=== PATIENT | female | born 1985 | race Caucasian/White ===

== ENCOUNTER → 2018-05-23 | Outpatient (REF) | payer OTHER ==
[~2018-05-23] MED LIST: OSEL75CA PO
[2018-05-23 17:12] LABS: INFLUENZA A AMPLIFICATION NEGATIVE (NEGATIVE); INFLUENZA B AMPLIFICATION NEGATIVE (NEGATIVE)
== END ==
LOC: M LAB REF 16:31
PROVIDERS: ATTEND Physician Assistant
DX: R68.89 Other general symptoms and signs (principal)

== ENCOUNTER → 2018-06-14 | Outpatient (REF) | payer OTHER ==
[2018-06-14 19:48] LABS: BASO % 0.5 % (0.0-1.0); EOS # 0.2 10^3/uL (0.0-0.50); EOS % 2.2 % (0.0-3.0); HEMATOCRIT 36.2 % (36.0-47.0); HEMOGLOBIN 11.6 g/dl (12.0-15.5); LYMPH # 2.8 10^3/uL (1.5-4.5); LYMPH % 32.2 % (24.0-44.0); MEAN CORPUSCULAR VOLUME 81.2 fl (80.0-96.0); MONO # 0.5 10^3/uL (0.0-0.8); MONO % 5.7 % (0.0-5.0); NEUTROPHILS # 5.1 10^3/uL (1.8-7.7); NEUTROPHILS % 59.2 % (36.0-66.0); PLATELET COUNT, AUTOMATED 255 10^3/uL (150-450); RED BLOOD COUNT 4.46 10^6/uL (4.00-5.40); WHITE BLOOD COUNT 8.6 10^3/uL (4.0-10.0)
[2018-06-14 19:58] LABS: ALT/SGPT 24 U/L (12-78); BILIRUBIN,TOTAL 0.4 MG/DL (0.2-1.0); BLOOD UREA NITROGEN 9 MG/DL (7-18); CALCIUM LEVEL 8.7 MG/DL (8.5-10.1); CARBON DIOXIDE LEVEL 25 MEQ/L (21-32); CHLORIDE LEVEL 110 MEQ/L (98-107); CREATININE FOR GFR 0.75 MG/DL (0.55-1.30); GLOMERULAR FILTRATION RATE > 60.0 (>60); GLUCOSE, FASTING 91 MG/DL (70-100); POTASSIUM SERUM 4.4 MEQ/L (3.5-5.1); SODIUM LEVEL 141 MEQ/L (136-145); TOTAL PROTEIN 7.8 GM/DL (6.4-8.2)
[2018-06-14 20:01] LABS: INR 1.03; PROTHROMBIN TIME 13.6 SECONDS (12.1-14.4)
[2018-06-14 20:02] LABS: PARTIAL THROMBOPLASTIN TIME 21.7 SECONDS (25.4-37.6)
[2018-06-19 08:06] LABS: PROTEIN C FUNCTIONAL ACTIVITY 121 % (73-180); PROTEIN S FUNCTIONAL ACTIVITY 87 % (63-140)
== END ==
LOC: M LAB REF 18:34
PROVIDERS: ATTEND Family Medicine Addiction Medicine
DX: I82.492 Acute embolism and thrombosis of other specified deep vein of left lower extremity (principal)

== ENCOUNTER 2018-08-04 19:08 | Emergency (ER) | payer OTHER ==
[~2018-08-04] VITALS: Ht 162.6 cm; Wt 124.5 kg
[~2018-08-04 19:08] MED LIST changes: +OMEP40CA2 PO
[2018-08-04] MEDS ORDERED: FUROSEMIDE 40 MG/4 ML VIAL (J1940) IV ONE (19:45)
[2018-08-04 20:10] LABS: BASO % 0.4 % (0.0-1.0); EOS # 0.2 10^3/uL (0.0-0.50); EOS % 2.3 % (0.0-3.0); HEMATOCRIT 30.9 % (36.0-47.0); HEMOGLOBIN 9.9 g/dl (12.0-15.5); LYMPH # 2.9 10^3/uL (1.5-4.5); LYMPH % 35.9 % (24.0-44.0); MEAN CORPUSCULAR VOLUME 81.1 fl (80.0-96.0); MONO # 0.4 10^3/uL (0.0-0.8); MONO % 4.7 % (0.0-5.0); NEUTROPHILS # 4.5 10^3/uL (1.8-7.7); NEUTROPHILS % 56.3 % (36.0-66.0); PLATELET COUNT, AUTOMATED 230 10^3/uL (150-450); RED BLOOD COUNT 3.81 10^6/uL (4.00-5.40); WHITE BLOOD COUNT 7.9 10^3/uL (4.0-10.0)
[2018-08-04 20:24] LABS: HCG, SERUM QUALITATIVE NEGATIVE (NEGATIVE)
[2018-08-04 20:34] LABS: BLOOD UREA NITROGEN 12 MG/DL (7-18); GLUCOSE, FASTING 110 MG/DL (70-100)
[2018-08-04 20:35] LABS: ALBUMIN 3.5 GM/DL (3.2-5.2); ALT/SGPT 29 U/L (12-78); BILIRUBIN,DIRECT < 0.1 MG/DL (0.0-0.2); BILIRUBIN,TOTAL 0.1 MG/DL (0.2-1.0); CALCIUM LEVEL 8.1 MG/DL (8.5-10.1); CARBON DIOXIDE LEVEL 25 MEQ/L (21-32); CHLORIDE LEVEL 109 MEQ/L (98-107); CPK CREATINE PHOSPHOKINASE 136 U/L (26-192); CREATININE FOR GFR 0.61 MG/DL (0.55-1.30); GLOMERULAR FILTRATION RATE > 60.0 (>60); MB/CK RELATIVE INDEX 0.73 (< OR =4); NT-PRO BNP 671 PG/ML (<125); POTASSIUM SERUM 4.1 MEQ/L (3.5-5.1); SODIUM LEVEL 142 MEQ/L (136-145); TOTAL PROTEIN 6.9 GM/DL (6.4-8.2); TROPONIN I < 0.02 NG/ML (< 0.10)
[2018-08-04 20:40] LABS: INR 0.93; PROTHROMBIN TIME 12.6 SECONDS (12.1-14.4)
--- NOTE | 2018-08-04 21:42 | REPVR ---
EXAM: US Duplex Bilateral Lower Extremity Veins EXAM DATE/TIME: 08/04/2018 9:02 PM CLINICAL HISTORY: 32 years old, female; Signs and symptoms; Edema, localized; Lower extremity, bilateral TECHNIQUE: Imaging protocol: Real-time duplex ultrasound of the Bilateral Lower Extremities with 2-D bender scale, color Doppler flow and spectral waveform analysis. Complete exam focused on the bilateral lower extremity veins. COMPARISON: No relevant prior studies available. FINDINGS: Right deep veins: Unremarkable. The common femoral, femoral and popliteal veins are patent without thrombus. Normal Doppler waveforms. Normal compressibility and/or augmentation response. Right superficial veins: Saphenofemoral junction is patent without thrombus. Left deep veins: Unremarkable. The common femoral, femoral and popliteal veins are patent without thrombus. Normal Doppler waveforms. Normal compressibility and/or augmentation response. Left superficial veins: Saphenofemoral junction is patent without thrombus. Soft tissues: Unremarkable. IMPRESSION: No sonographic evidence of deep vein thrombosis. Electronically signed by: Norm Sanchez On 08/04/2018 21:42:08 PM
[2018-08-04] MEDS ORDERED: LISI10TA4 PO (22:15)
[2018-08-04] MEDS ORDERED: HYDR12.55 PO (22:15)
[2018-08-04 22:24] VITALS: BP 138/88
--- NOTE | 2018-08-05 09:44 | REP ---
Cough and dyspnea. FINDINGS: The superior mediastinal structures are midline. The cardiac silhouette is unremarkable in size, shape, and position. The diaphragmatic surfaces of the lungs are regular, and the costophrenic angles are clear. The pulmonary miller are clear. The imaged osseous structures are intact. IMPRESSION: There is no acute cardiopulmonary disease. Electronically Signed by Roberth Coronel DO 08/05/2018 01:45 P
--- NOTE | 2018-08-05 20:53 | ECGEPIP ---
Stationary ECG Study [facility] - ED Test Date: 2018-08-04 Pat Name: MEGHAN ALARCON Department: Room: - Gender: F Lube Technician: gt : 1985 Requested By: FIORELLA Grace Order Number: [id number] Reading MD: Rosalba Carey Measurements Intervals [place] Rate: 81 P: 56 OR: 156 QRS: 35 QRSD: 97 T: 45 QT: 351 QTc: 409 Interpretive Statements SINUS RHYTHM SIMILAR 04/04/13 Electronically Signed On 08-05-2018 20:52:44 EDT by Rosalba Carey
== END 2018-08-04 22:47 | disposition home or self-care (01) ==
LOC: M ED 19:08
DX: I10 Essential (primary) hypertension (principal); E87.70 Fluid overload, unspecified; Z88.1 Allergy status to other antibiotic agents; Z88.0 Allergy status to penicillin; Z91.02 Food additives allergy status
CPT/HCPCS: 71046; 80048; 80076; 82550; 82553; 83880; 84703; 85025; 85610; 93005; 93041; 93970; 94760; 96374; 99284; J1940

== ENCOUNTER → 2018-10-01 | Outpatient (REF) | payer OTHER, MEDICAID ==
[~2018-10-01] MED LIST changes: +HYDR12.55 PO; +LISI10TA4 PO
[2018-10-01 17:48] LABS: BASO % 0.5 % (0.0-1.0); EOS # 0.2 10^3/uL (0.0-0.50); EOS % 2.9 % (0.0-3.0); HEMATOCRIT 35.6 % (36.0-47.0); HEMOGLOBIN 11.2 g/dl (12.0-15.5); LYMPH # 2.2 10^3/uL (1.5-4.5); LYMPH % 34.3 % (24.0-44.0); MEAN CORPUSCULAR HEMOGLOBIN 25.5 pg (27.0-33.0); MEAN CORPUSCULAR HGB CONC 31.5 g/dl (32.0-36.5); MEAN CORPUSCULAR VOLUME 81.1 fl (80.0-96.0); MONO # 0.4 10^3/uL (0.0-0.8); MONO % 5.9 % (0.0-5.0); NEUTROPHILS # 3.5 10^3/uL (1.8-7.7); NEUTROPHILS % 56.2 % (36.0-66.0); PLATELET COUNT, AUTOMATED 251 10^3/uL (150-450); RED BLOOD COUNT 4.39 10^6/uL (4.00-5.40); WHITE BLOOD COUNT 6.3 10^3/uL (4.0-10.0)
[2018-10-01 17:51] LABS: ALT/SGPT 25 U/L (12-78); BILIRUBIN,TOTAL 0.4 MG/DL (0.2-1.0); BLOOD UREA NITROGEN 11 MG/DL (7-18); CALCIUM LEVEL 8.7 MG/DL (8.5-10.1); CARBON DIOXIDE LEVEL 26 MEQ/L (21-32); CHLORIDE LEVEL 109 MEQ/L (98-107); CHOLESTEROL LEVEL 155 MG/DL (<200); CREATININE FOR GFR 0.77 MG/DL (0.55-1.30); GLOMERULAR FILTRATION RATE > 60.0 (>60); GLUCOSE, FASTING 99 MG/DL (70-100); POTASSIUM SERUM 3.6 MEQ/L (3.5-5.1); SODIUM LEVEL 140 MEQ/L (136-145); TRIGLYCERIDES LEVEL 135 MG/DL (<150)
[2018-10-01 17:52] LABS: ALBUMIN 3.8 GM/DL (3.2-5.2); CHOLESTEROL RISK RATIO 4.078 (<5); HDL CHOLESTEROL 38 MG/DL (>40); LDL CHOLESTEROL 90 MG/DL (<100); NON-HDL-C 117 MG/DL; TOTAL PROTEIN 7.7 GM/DL (6.4-8.2)
[2018-10-01 17:53] LABS: TOTAL 25(OH) VITAMIN D 15.2 NG/ML (30.0-100.0)
[2018-10-01 19:02] LABS: HEMOGLOBIN A1c 5.4 %
[2018-10-04 00:07] LABS: Lyme Disease IgG/IgM Antibodie <0.91 ISR (0.00-0.90); Lyme Disease IgM Ab Quantitati <0.80 index (0.00-0.79)
== END ==
LOC: M LAB REF 16:48
PROVIDERS: ATTEND Family Medicine
DX: Z13.228 Encounter for screening for other metabolic disorders (principal)

== ENCOUNTER → 2019-04-05 | Outpatient (REF) | payer OTHER ==
[~2019-04-05] MED LIST changes: -OMEP40CA2 PO; +OMEP40CA97 PO
[2019-04-05 18:20] LABS: APPEARANCE, URINE HAZY (CLEAR); BACTERIA, URINE AUTO 3+ (NEGATIVE); BILIRUBIN, URINE AUTO NEGATIVE (NEGATIVE); BLOOD, URINE BLOOD 3+ (NEGATIVE); COLOR, URINE YELLOW (YELLOW); GLUCOSE, URINE (UA) AUTO NEGATIVE (NEGATIVE); KETONE, URINE AUTO NEGATIVE (NEGATIVE); LEUKOCYTE ESTERASE, URINE AUTO 2+ (NEGATIVE); NITRITE, URINE AUTO POSITIVE (NEGATIVE); PROTEIN, URINE AUTO 2+ mg/dL (NEGATIVE); RBC, URINE AUTO 121 /HPF (0-3); SPECIFIC GRAVITY URINE AUTO 1.023 (1.002-1.035); SQUAMOUS EPITHELIAL CELL UR AU 1 /HPF (0-6); UROBILINOGEN, URINE AUTO 0.2 mg/dL (0.0-2.0); WBC, URINE AUTO 149 /HPF (0-3)
== END ==
LOC: M LAB REF 16:48
PROVIDERS: ATTEND Physician Assistant Medical
DX: N39.0 Urinary tract infection, site not specified (principal)

== ENCOUNTER → 2019-05-09 | Outpatient (REF) | payer OTHER | LOC: M LAB REF 17:11 | PROVIDERS: ATTEND Physician Assistant | DX: D22.4 Melanocytic nevi of scalp and neck (principal) ==

== ENCOUNTER → 2019-06-12 | Outpatient (REF) | payer OTHER, MEDICAID ==
[2019-06-12 19:31] LABS: BASO % 0.5 % (0.0-1.0); EOS # 0.2 10^3/uL (0.0-0.5); EOS % 2.6 % (0.0-3.0); HEMATOCRIT 35.6 % (36.0-47.0); HEMOGLOBIN 11.3 g/dl (12.0-15.5); LYMPH # 2.4 10^3/uL (1.5-5.0); LYMPH % 28.4 % (24.0-44.0); MEAN CORPUSCULAR HEMOGLOBIN 25.9 pg (27.0-33.0); MEAN CORPUSCULAR HGB CONC 31.7 g/dl (32.0-36.5); MEAN CORPUSCULAR VOLUME 81.7 fl (80.0-96.0); MONO # 0.5 10^3/uL (0.0-0.8); MONO % 5.6 % (0.0-5.0); NEUTROPHILS # 5.4 10^3/uL (1.5-8.5); NEUTROPHILS % 62.7 % (36.0-66.0); PLATELET COUNT, AUTOMATED 229 10^3/uL (150-450); RED BLOOD COUNT 4.36 10^6/uL (4.00-5.40); WHITE BLOOD COUNT 8.6 10^3/uL (4.0-10.0)
[2019-06-12 19:44] LABS: ALBUMIN 3.7 GM/DL (3.2-5.2); ALT/SGPT 20 U/L (12-78); BILIRUBIN,TOTAL 0.3 MG/DL (0.2-1.0); BLOOD UREA NITROGEN 11 MG/DL (7-18); CARBON DIOXIDE LEVEL 26 MEQ/L (21-32); CHLORIDE LEVEL 106 MEQ/L (98-107); CREATININE FOR GFR 0.63 MG/DL (0.55-1.30); FERRITIN 8 NG/ML (8-252); FREE T4 1.28 NG/DL (0.76-1.46); GLOMERULAR FILTRATION RATE > 60.0 (>60); GLUCOSE, FASTING 130 MG/DL (70-100); IRON (FE) 66 UG/DL (50-170); POTASSIUM SERUM 3.9 MEQ/L (3.5-5.1); SODIUM LEVEL 137 MEQ/L (136-145); TOTAL PROTEIN 7.5 GM/DL (6.4-8.2)
[2019-06-12 19:45] LABS: VITAMIN B12 LEVEL 836 PG/ML
[2019-06-12 19:46] LABS: FOLATE 7.7 NG/ML
== END ==
LOC: M LAB REF 18:38
PROVIDERS: ATTEND Physician Assistant
DX: N92.0 Excessive and frequent menstruation with regular cycle (principal); D64.9 Anemia, unspecified; E55.9 Vitamin D deficiency, unspecified; F41.9 Anxiety disorder, unspecified; Z98.84 Bariatric surgery status; E66.01 Morbid (severe) obesity due to excess calories

== ENCOUNTER → 2019-08-21 | Outpatient (REF) | payer OTHER, MEDICAID ==
[~2019-08-21] MED LIST changes: +ALBU83IN INH; +DICY20TA11 PO; +NITR-67 PO; +PHEN-593 PO; +SERT-141 PO; +VITAD1000T PO
[2019-08-21 20:11] LABS: CHLAMYDIA DNA AMPLIFICATION NEGATIVE (NEGATIVE); GC DNA AMPLIFICATION NEGATIVE (NEGATIVE)
== END ==
LOC: M LAB REF 16:39
PROVIDERS: ATTEND Physician Assistant
DX: N30.01 Acute cystitis with hematuria (principal); R30.0 Dysuria

== ENCOUNTER → 2019-08-26 | Outpatient (CLI) | payer OTHER, MEDICAID | LOC: M LABSMTC 12:40 | PROVIDERS: ATTEND Anesthesiology | DX: Z01.812 Encounter for preprocedural laboratory examination (principal); Z11.59 Encounter for screening for other viral diseases | CPT/HCPCS: C8903; U0002 ==

== ENCOUNTER 2019-08-28 08:07 | Day surgery (SDC) | payer OTHER ==
[~2019-08-28] VITALS: Ht 162.6 cm; Wt 127.0 kg
[~2019-08-28 08:07] MED LIST changes: +LIDOCAINE 1% MDV 20ML VIAL SQ PRN; +LR 1,000 ML IV ONE
[2019-08-28] MEDS ORDERED: BUPIVACAINE/EPIN 0.25% 30 ML VIAL As Ordered ONE (08:27)
[2019-08-28] MEDS ORDERED: propofoL 200 MG/20 ML VIAL As Ordered ONE (08:29)
[2019-08-28] MEDS ORDERED: fentaNYL 100 MCG/2 ML INJECTION (J3010) As Ordered ONE ×4 (08:29→10:18)
[2019-08-28] MEDS ORDERED: MIDAZOLAM INJ 2MG/2ML VIAL (J2250 PER 1MG) As Ordered ONE (08:29)
[2019-08-28] MEDS ORDERED: ONDANSETRON 4MG/2ML VIAL As Ordered ONE (08:29)
[2019-08-28] MEDS ORDERED: LIDOCAINE 2% 100MG/5ML SDV (FOR ANES.) As Ordered ONE (08:29)
[2019-08-28] MEDS ORDERED: dexameTHASONE 4 MG/ML 1ML VIAL (J1100 PER 1MG) As Ordered ONE (08:29)
[2019-08-28] MEDS ORDERED: ACETAMINOPHEN 1000MG 100ML IV BTL (OFIRMEV) (J0131 PER 10MG) As Ordered ONE (09:15)
[2019-08-28] MEDS ORDERED: oxyCODONE 5MG TAB As Ordered ONE (10:18)
[2019-08-28] MEDS: fentaNYL 100 MCG/2 ML INJECTION (J3010) IV PRN ×2 (10:20→10:25)
[2019-08-28] MEDS ORDERED: oxyCODONE 5MG TAB PO PRN (10:30)
[2019-08-28] MEDS ORDERED: LR 1,000 ML IV SCH (10:30)
[2019-08-28] MEDS ORDERED: ONDANSETRON 4MG/2ML VIAL IV PRN (10:30)
--- NOTE | 2019-08-28 11:34 | RO ---
DATE OF SERVICE: 08/28/2019 PREOPERATIVE DIAGNOSES: Left carpal and cubital tunnel syndrome. POSTOPERATIVE DIAGNOSES: Left carpal and cubital tunnel syndrome. PROCEDURE: Left cubital tunnel release and endoscopic carpal tunnel release. Cubital tunnel had anterior transposition. SURGEON: Dr. Felipe Thomas MAGNETIC RESONANCE IMAGING DIRECTOR: ANESTHESIA: General. INDICATIONS: A 33-year-old female that failed nonoperative modes of treatment. We discussed the risks and benefits of surgical release, including but not limited to, infection, damage to surrounding structures, incomplete relief. Patient wished to proceed. PREOPERATIVE ANTIBIOTICS: None. BLOOD LOSS: Minimal. TOURNIQUET TIME: 27 minutes. COMPLICATIONS: None. OPERATIVE DESCRIPTION: Patient was brought back to the operating room (OR) in the supine position and underwent general anesthesia. The left arm was prepped and draped in the usual fashion. We then had time-out confirming side, site, and surgery. Once all in agreement, we injected 20 mL of 0.25% Marcaine with epinephrine surrounding the incision, elevated the tourniquet up to 250 mmHg, made a transverse incision over the palmaris longus, retracted it radially, down to antebrachial fascia, sharply dissected it, used the two-prong skin hook to elevate. We then inserted the dilator and then the synovial stripper and endoscopic camera. Once the median nerve was visualized and out of view, we transected the transverse carpal ligament from distal to proximal. Once adequately reduced, we irrigated and closed with #3-0 Vicryl, #3-0 Prolene, Mastisol, Steris, gauze, and Tegaderm. Then, transferred up to the elbow and made a longitudinal incision between the medial condyle and the olecranon. Sharply dissected through the subcutaneous tissue, monitoring for the medial antebrachial cutaneous nerve, which we identified distal from the incision. This was preserved and retracted out of the way. We then identified the ulnar nerve at the proximal extent of the incision, released it off the intermuscular septum and distally through Ruiz ligament through the superficial and deep fascia of the flexor carpi ulnaris (FCU), at which point, we did a thorough neurolysis and transposed it anteriorly over the medial epicondyle. At this point, we closed the Ruiz ligament posteriorly with #3-0 Prolene and created an adequate fascial sling that was closed down with #3-0 Vicryl. Ranged the elbow. There were no additional sites of compression. We irrigated the wound thoroughly, closed the subcutaneous tissues with #3-0 Vicryl, skin with #3-0 Monocryl, Mastisol, Steris, gauze, Tegaderm, Kerlix, and Be. Tourniquet was let down. Patient was taken to post anesthesia care unit (PACU) in stable condition. POSTOPERATIVE PLAN: Patient will work on pain control, range of motion. We will see her 2 weeks postoperative to look at the incisions.
[2019-08-28 12:52] VITALS: BP 135/90
== END 2019-08-28 12:53 | disposition home or self-care (01) ==
LOC: M SDC 08:07
PROVIDERS: ATTEND Orthopaedic Surgery Hand Surgery
DX: G56.02 Carpal tunnel syndrome, left upper limb (principal); G56.22 Lesion of ulnar nerve, left upper limb; I73.9 Peripheral vascular disease, unspecified; D64.9 Anemia, unspecified; J45.909 Unspecified asthma, uncomplicated; E66.01 Morbid (severe) obesity due to excess calories; Z79.899 Other long term (current) drug therapy; Z86.718 Personal history of other venous thrombosis and embolism; Z87.891 Personal history of nicotine dependence; Z98.84 Bariatric surgery status; F41.9 Anxiety disorder, unspecified; F32.9 Major depressive disorder, single episode, unspecified
CPT/HCPCS: 29848; 64718; 81025; J0131; J1100; J2250; J2405; J3010

== ENCOUNTER → 2019-09-24 | Outpatient (CLI) | payer OTHER ==
[~2019-09-24] MED LIST changes: -LIDOCAINE 1% MDV 20ML VIAL SQ PRN; -LR 1,000 ML IV ONE
[2019-09-24 17:42] LABS: BLOOD UREA NITROGEN 8 MG/DL (7-18); CALCIUM LEVEL 8.7 MG/DL (8.5-10.1); CARBON DIOXIDE LEVEL 24 MEQ/L (21-32); CHLORIDE LEVEL 110 MEQ/L (98-107); CREATININE FOR GFR 0.67 MG/DL (0.55-1.30); GLOMERULAR FILTRATION RATE > 60.0 (>60); GLUCOSE, FASTING 79 MG/DL (70-100); NT-PRO BNP 28 PG/ML (<125); POTASSIUM SERUM 4.1 MEQ/L (3.5-5.1); SODIUM LEVEL 141 MEQ/L (136-145)
== END ==
LOC: M WUC 12:20
PROVIDERS: ATTEND Internal Medicine Cardiovascular Disease
DX: R06.02 Shortness of breath (principal); R03.0 Elevated blood-pressure reading, without diagnosis of hypertension

== ENCOUNTER → 2019-09-24 | Outpatient (CLI) | payer OTHER ==
[2019-09-24 17:24] LABS: HCG, SERUM QUALITATIVE NEGATIVE (NEGATIVE)
== END ==
LOC: M WUC 12:23
PROVIDERS: ATTEND Physician Assistant
DX: N91.2 Amenorrhea, unspecified (principal)

== ENCOUNTER → 2019-10-16 | Outpatient (REF) | payer OTHER, MEDICAID | LOC: M LAB REF 16:12 | PROVIDERS: ATTEND Physician Assistant | DX: E55.9 Vitamin D deficiency, unspecified (principal) ==

== ENCOUNTER → 2019-12-27 | Outpatient (CLI) | payer OTHER, MEDICAID ==
[~2019-12-27] MED LIST changes: +D31000TA2 PO; -VITAD1000T PO
[2019-12-27 21:21] LABS: FOLLICLE STIMULATING HORMONE 3.1 mIU/mL; FREE T4 0.95 NG/DL (0.76-1.46); LUTEINIZING HORMONE 2.8 mIU/mL; PROGESTERONE 4.33 NG/ML; PROLACTIN 7.4 NG/ML; THYROID STIMULATING HORMONE 1.71 uIU/ML (0.358-3.740)
== END ==
LOC: M WUC 17:27
PROVIDERS: ATTEND Specialist
DX: N92.6 Irregular menstruation, unspecified (principal)

== ENCOUNTER → 2020-01-16 | Outpatient (CLI) | payer OTHER, MEDICAID | LOC: M LABSMTC 12:47 | PROVIDERS: ATTEND Anesthesiology | DX: Z01.812 Encounter for preprocedural laboratory examination (principal); Z20.828 Contact with and (suspected) exposure to other viral communicable diseases | CPT/HCPCS: C9803; U0003 ==

== ENCOUNTER 2020-01-20 10:45 | Day surgery (SDC) | payer OTHER ==
[~2020-01-20] VITALS: Ht 162.6 cm; Wt 127.5 kg
[2020-01-20] MEDS ORDERED: LR 1,000 ML IV ONE (11:15)
[2020-01-20] MEDS ORDERED: fentaNYL 100 MCG/2 ML INJECTION (J3010) As Ordered ONE ×3 (13:05→14:35)
[2020-01-20] MEDS ORDERED: LIDOCAINE 2% INJ 100 MG/5 ML SYRINGE As Ordered ONE (13:05)
[2020-01-20] MEDS ORDERED: propofoL 200 MG/20 ML VIAL As Ordered ONE ×2 (13:05→13:07)
[2020-01-20] MEDS ORDERED: MIDAZOLAM INJ 2MG/2ML VIAL (J2250 PER 1MG) As Ordered ONE (13:05)
[2020-01-20] MEDS ORDERED: ONDANSETRON 4MG/2ML VIAL As Ordered ONE ×2 (13:05→14:39)
[2020-01-20] MEDS ORDERED: BUPIVACAINE/EPIN 0.25% 30 ML VIAL As Ordered ONE (13:10)
[2020-01-20] MEDS ORDERED: KETOROLAC 30 MG/ML 1ML VIAL As Ordered ONE (14:35)
[2020-01-20] MEDS: fentaNYL 100 MCG/2 ML INJECTION (J3010) IV PRN ×4 (14:36→14:52)
[2020-01-20] MEDS ORDERED: LR 1,000 ML IV SCH ×2 (15:00)
[2020-01-20] MEDS ORDERED: ONDANSETRON 4MG/2ML VIAL IV PRN ×2 (15:00)
[2020-01-20] MEDS ORDERED: oxyCODONE 5MG TAB PO PRN (15:00)
[2020-01-20] MEDS ORDERED: MORPHINE 4 MG/ML 1ML VIAL/SYRINGE (J2270) IV PRN (15:15)
[2020-01-20] MEDS ORDERED: PERCOCET 5MG/325MG TAB PO PRN ×2 (15:15)
[2020-01-20] MEDS ORDERED: KETOROLAC 30 MG/ML 1ML VIAL IV ONE (16:00)
[2020-01-20 16:50] VITALS: BP 141/87
--- NOTE | 2020-01-22 16:13 | RO ---
DATE OF OPERATION: 01/20/2020 PREOPERATIVE DIAGNOSES: 1. Right ulnar neuropathy. 2. Right median neuropathy. POSTOPERATIVE DIAGNOSES: 1. Right ulnar neuropathy. 2. Right median neuropathy. PROCEDURE PERFORMED: 1. Right ulnar nerve decompression at the elbow. 2. Right open carpal tunnel release. SURGEON: Shola Polk MD IT COMPLIANCE ANALYST: ANESTHESIA: General. ESTIMATED BLOOD LOSS: Less than 40 mL replaced with crystalloid. COMPLICATIONS: None. TOURNIQUET: No tourniquet required. INDICATIONS: Paresthesias, right upper extremity. Electrodiagnostic studies suggesting compression with peripheral neuropathy. The patient has elected for operative intervention. Consent reviewed in detail including a moe discussion of the pathology involved, the procedure proposed, alternatives including doing nothing, and risks including, but not limited to, pain, failure, incomplete relief, need for more surgery, nerve injury, and other issues. The patient agreed to proceed. OPERATIVE COURSE: Identified in the holding area, site and side verified, brought to the operating room. General endotracheal anesthesia was administered. She was positioned for exposure of the right upper extremity. Next, a tourniquet was placed high on the right upper extremity in case it was needed, but it was not inflated prior to prepping and draping. Once she was prepped and draped, time-out was accomplished. The incisions were outlined with the marking pen over the medial epicondyle and over the carpal tunnel. The incisions were infiltrated with 0.25% Marcaine with epinephrine. Next, a 3.5 loupe magnification was utilized. Next, the incision at the medial epicondyle of the elbow was made with a 10-blade knife, developed down through skin and subcuticular tissues using a tenotomy scissors to the surface of the medial epicondyle. Ruiz fascia was identified. Ruiz fascia was opened sharply using a 10-blade knife. The ulnar nerve was directly visualized. I utilized tenotomy scissors to further undermine the Ruiz ligament as it extended in the fascia along the nerve. Bipolar cautery was utilized for hemostasis. The fascia was divided using a tenotomy scissors both distally, splitting the heads of the FCU, and proximally to about 3 cm proximal to the medial epicondyle ulnar nerve under direct visualization during the entirety of the case. Next, the tissue around the ulnar nerve was then explored for fascial entrapments, which were freed. The elbow was placed through a range of motion and the nerve was appreciated to be stable and decompressed. Next irrigation was accomplished. Next, the dermis was reapproximated with interrupted stitch and a running Monocryl stitch was then utilized to close the wound. Steri-Strips were applied over Mastisol. Next, attention was turned to the carpal tunnel. The incision was based on the fourth ray, approximately 3 cm long, made with a 15-blade, developed down through subcuticular tissue to the palmaris. Next, under direct visualization, palmaris was divided exposing the transverse carpal ligament. The transverse carpal ligament was then sharply opened and the median nerve and contents of the carpal tunnel were directly visualized. Next, under direct visualization, the 15-blade was used to further split the transverse carpal ligament to its distal extent under direct visualization. Then, my registered nurse surgical services helped expose proximally. I divided the transverse carpal ligament proximally. I utilized tenotomy scissors proximally as well to divide the fascial entrapment proximal to the transverse carpal ligament under direct visualization. Next, once this was accomplished, irrigation was accomplished, and the wound was closed with interrupted 5-0 nylon stitch. Next, separate dressings were applied to both wounds. Once this was accomplished, the patient was extubated and moved to the recovery room in good condition. For further details, please refer to the medical record. HILARIO
== END 2020-01-20 17:01 | disposition home or self-care (01) ==
LOC: M SDC 10:45
PROVIDERS: ATTEND Orthopaedic Surgery
DX: G56.01 Carpal tunnel syndrome, right upper limb (principal); G56.11 Other lesions of median nerve, right upper limb; K21.9 Gastro-esophageal reflux disease without esophagitis; K58.8 Other irritable bowel syndrome; J45.909 Unspecified asthma, uncomplicated; F32.9 Major depressive disorder, single episode, unspecified; F41.9 Anxiety disorder, unspecified; Z88.0 Allergy status to penicillin; Z88.5 Allergy status to narcotic agent; Z88.8 Allergy status to other drugs, medicaments and biological substances; Z91.048 Other nonmedicinal substance allergy status; Z79.899 Other long term (current) drug therapy; Z98.84 Bariatric surgery status; Z79.51 Long term (current) use of inhaled steroids
CPT/HCPCS: 64718; 64721; 81025; J1885; J2250; J2405; J3010

== ENCOUNTER → 2020-05-19 | Outpatient (REF) | payer OTHER ==
[~2020-05-19] MED LIST changes: -PHEN-593 PO; +PHEN1TAB73 PO
== END ==
LOC: M LAB REF 16:32
PROVIDERS: ATTEND Physician Assistant Medical
DX: J02.9 Acute pharyngitis, unspecified (principal)

== ENCOUNTER → 2020-08-05 | Outpatient (REF) | payer OTHER ==
[~2020-08-05] MED LIST changes: +LISI10TA22 PO; -LISI10TA4 PO
[2020-08-05 16:55] LABS: BASO % 0.6 % (0.0-1.0); EOS # 0.2 10^3/uL (0.0-0.5); EOS % 2.4 % (0.0-3.0); HEMATOCRIT 34.8 % (36.0-47.0); HEMOGLOBIN 11.2 g/dl (12.0-15.5); LYMPH # 2.5 10^3/uL (1.5-5.0); LYMPH % 34.5 % (24.0-44.0); MEAN CORPUSCULAR HEMOGLOBIN 25.9 pg (27.0-33.0); MEAN CORPUSCULAR HGB CONC 32.2 g/dl (32.0-36.5); MEAN CORPUSCULAR VOLUME 80.4 fl (80.0-96.0); MONO # 0.4 10^3/uL (0.0-0.8); MONO % 6.1 % (2.0-8.0); NEUTROPHILS % 56.1 % (36.0-66.0); PLATELET COUNT, AUTOMATED 243 10^3/uL (150-450); RED BLOOD COUNT 4.33 10^6/uL (4.00-5.40); WHITE BLOOD COUNT 7.1 10^3/uL (4.0-10.0)
[2020-08-05 17:31] LABS: ALT/SGPT 17 U/L (12-78); BLOOD UREA NITROGEN 7 MG/DL (7-18); CALCIUM LEVEL 8.9 MG/DL (8.5-10.1); CARBON DIOXIDE LEVEL 22 MEQ/L (21-32); CHLORIDE LEVEL 107 MEQ/L (98-107); CREATININE FOR GFR 0.54 MG/DL (0.55-1.30); GLOMERULAR FILTRATION RATE > 60.0 (>60); GLUCOSE, FASTING 88 MG/DL (70-100); POTASSIUM SERUM 4.1 MEQ/L (3.5-5.1); SODIUM LEVEL 137 MEQ/L (136-145)
[2020-08-05 17:32] LABS: ALBUMIN 3.6 GM/DL (3.2-5.2); BILIRUBIN,TOTAL 0.4 MG/DL (0.2-1.0); CHOLESTEROL LEVEL 140 MG/DL (<200); CHOLESTEROL RISK RATIO 3.684 (<5); FREE T4 0.93 NG/DL (0.76-1.46); HDL CHOLESTEROL 38 MG/DL (>40); LDL CHOLESTEROL 84 MG/DL (<100); NON-HDL-C 102 MG/DL; TOTAL 25(OH) VITAMIN D 12.8 NG/ML (30.0-100.0); TOTAL PROTEIN 7.3 GM/DL (6.4-8.2); TRIGLYCERIDES LEVEL 90 MG/DL (<150)
[2020-08-05 18:59] LABS: HEMOGLOBIN A1c 5.2 %
== END ==
LOC: M LAB REF 15:46
PROVIDERS: ATTEND Physician Assistant
DX: E66.9 Obesity, unspecified (principal)

== ENCOUNTER 2020-09-02 18:08 | Emergency (ER) | payer OTHER, MEDICAID ==
[~2020-09-02] VITALS: Ht 162.6 cm; Wt 129.6 kg
[2020-09-02] MEDS ORDERED: PRENTAB53 PO (18:18)
[2020-09-02] MEDS ORDERED: ASPI81TA26 (18:18)
[2020-09-02] MEDS ORDERED: ENOX40IN3 (18:18)
[2020-09-02 21:15] LABS: BASO % 0.3 % (0.0-1.0); EOS # 0.2 10^3/uL (0.0-0.5); EOS % 1.7 % (0.0-3.0); HEMATOCRIT 33.6 % (36.0-47.0); HEMOGLOBIN 10.7 g/dl (12.0-15.5); LYMPH # 2.7 10^3/uL (1.5-5.0); LYMPH % 27.7 % (24.0-44.0); MEAN CORPUSCULAR HEMOGLOBIN 25.7 pg (27.0-33.0); MEAN CORPUSCULAR HGB CONC 31.8 g/dl (32.0-36.5); MEAN CORPUSCULAR VOLUME 80.8 fl (80.0-96.0); MONO # 0.5 10^3/uL (0.0-0.8); MONO % 5.6 % (2.0-8.0); NEUTROPHILS # 6.2 10^3/uL (1.5-8.5); NEUTROPHILS % 64.3 % (36.0-66.0); PLATELET COUNT, AUTOMATED 220 10^3/uL (150-450); RED BLOOD COUNT 4.16 10^6/uL (4.00-5.40); WHITE BLOOD COUNT 9.7 10^3/uL (4.0-10.0)
[2020-09-02 21:43] LABS: HEMOGLOBIN A1c 5.6 %
[2020-09-02 21:51] VITALS: BP 121/64
[2020-09-02 22:07] LABS: ACETONE/KETONE 4.23 MG/DL (<2.81); ALBUMIN 3.5 GM/DL (3.2-5.2); ALT/SGPT 21 U/L (12-78); BILIRUBIN,TOTAL 0.3 MG/DL (0.2-1.0); BLOOD UREA NITROGEN 7 MG/DL (7-18); CALCIUM LEVEL 8.8 MG/DL (8.5-10.1); CARBON DIOXIDE LEVEL 23 MEQ/L (21-32); CHLORIDE LEVEL 107 MEQ/L (98-107); CREATININE FOR GFR 0.51 MG/DL (0.55-1.30); GLOMERULAR FILTRATION RATE > 60.0 (>60); GLUCOSE, FASTING 89 MG/DL (70-100); SODIUM LEVEL 138 MEQ/L (136-145); TOTAL PROTEIN 7.7 GM/DL (6.4-8.2)
== END 2020-09-02 23:27 | disposition home or self-care (01) ==
LOC: M ED 18:08
DX: O26.891 Other specified pregnancy related conditions, first trimester (principal); N89.8 Other specified noninflammatory disorders of vagina; O99.810 Abnormal glucose complicating pregnancy; Z3A.08 8 weeks gestation of pregnancy; Z88.0 Allergy status to penicillin; Z88.1 Allergy status to other antibiotic agents; Z79.899 Other long term (current) drug therapy

== ENCOUNTER → 2020-09-03 | Outpatient (CLI) | payer OTHER, MEDICAID ==
[~2020-09-03] MED LIST changes: +ASPI81TA26; +ENOX40IN3; +PRENTAB53 PO
[2020-09-03 16:51] LABS: HEMATOCRIT 34.2 % (36.0-47.0); HEMOGLOBIN 10.7 g/dl (12.0-15.5); MEAN CORPUSCULAR HEMOGLOBIN 25.9 pg (27.0-33.0); MEAN CORPUSCULAR HGB CONC 31.3 g/dl (32.0-36.5); MEAN CORPUSCULAR VOLUME 82.8 fl (80.0-96.0); PLATELET COUNT, AUTOMATED 237 10^3/uL (150-450); RED BLOOD COUNT 4.13 10^6/uL (4.00-5.40); WHITE BLOOD COUNT 7.6 10^3/uL (4.0-10.0)
[2020-09-03 17:31] LABS: TOTAL PROTEIN,RANDOM URINE 16.4 MG/DL (0.0-12.0)
[2020-09-03 17:38] LABS: ALT/SGPT 19 U/L (12-78); BILIRUBIN,TOTAL 0.5 MG/DL (0.2-1.0); CREATININE FOR GFR 0.51 MG/DL (0.55-1.30); GLOMERULAR FILTRATION RATE > 60.0 (>60); LDH LACTATE DEHYDROGENASE 167 U/L (84-246); URIC ACID 4.3 MG/DL (2.6-6.0)
[2020-09-03 17:49] LABS: HEMOGLOBIN A1c 5.6 %
[2020-09-03 18:12] LABS: HIV 1&2 SCREEN CENTAUR NEGATIVE (NEGATIVE)
== END ==
LOC: M WUC 12:57
PROVIDERS: ATTEND Advanced Practice Midwife
DX: O34.211 Maternal care for low transverse scar from previous cesarean delivery (principal); Z3A.00 Weeks of gestation of pregnancy not specified

== ENCOUNTER → 2020-09-16 | Outpatient (CLI) | payer OTHER, MEDICAID | LOC: M PLALAB 10:14 | PROVIDERS: ATTEND Obstetrics & Gynecology | DX: Z34.81 Encounter for supervision of other normal pregnancy, first trimester (principal); Z3A.00 Weeks of gestation of pregnancy not specified ==

== ENCOUNTER → 2020-09-25 | Outpatient (CLI) | payer OTHER, MEDICAID | LOC: M PLALAB 09:29 | PROVIDERS: ATTEND Obstetrics & Gynecology | DX: Z34.81 Encounter for supervision of other normal pregnancy, first trimester (principal) ==

== ENCOUNTER → 2020-11-09 | Outpatient (CLI) | payer OTHER, MEDICAID ==
[~2020-11-09] MED LIST changes: +OMEP40CA4 PO; -OMEP40CA97 PO
--- NOTE | 2020-11-09 12:02 | REP ---
INDICATION: ANATOMY CAROL 04/10/21. COMPARISON: None. TECHNIQUE: Transabdominal obstetric sonography. FINDINGS: Scanning through the gravid uterus demonstrates a viable single intrauterine gestation in variable lie. motion is observed and heart rate is recorded at 143 beats per minute. A posterior placenta is seen, grade 0, without evidence of placenta previa. Closed cervical length is measured at 4.0 cm transabdominally. No extrauterine abnormality is observed. Amniotic fluid is subjectively normal. The following anatomic structures are less than optimally seen today due to position: Choroid plexus, nose and lips, lungs, left and right ventricular cardiac outflow tract views, diaphragm. There is an echogenic focus in the left ventricle. Four-chamber heart view is otherwise unremarkable. The following additional anatomic structures are identified and felt to be normal: cranium, falx and cerebellum, facial profile and orbits, left-sided stomach, abdominal wall cord insertion, right and left kidney, urinary bladder, spine, upper and lower extremities, three-vessel cord.. Biometry chart: BPD 4.2 cm, 18 weeks 5 days Head circumference 15.9 cm, 18 weeks 5 days Abdominal circumference 13.3 cm, 18 weeks 6 days Femur length 2.8 cm, 18 weeks 4 days Humeral length 2.8 cm, 18 weeks 6 days He HC AC ratio normal 1.20 Cephalic index normal 0.73 Estimated weight 255 g, 0 lb 8 oz, 73rd percentile for 18 weeks 2 days IMPRESSION: Viable single intrauterine gestation at 18 weeks 5 days by today's composite sonographic criteria. CAROL by today's sonography April 07, 2021.. No complication identified. Expected gestational age estimate based on known CAROL of April 10, 2021 is 18 weeks 2 days. anatomic survey is less than complete as above. <Electronically signed by Ang Avila > 11/09/20 [id number]
== END ==
LOC: M WHC 09:53
PROVIDERS: ATTEND Advanced Practice Midwife
DX: Z34.82 Encounter for supervision of other normal pregnancy, second trimester (principal)

== ENCOUNTER → 2020-12-02 | Outpatient (CLI) | payer OTHER, MEDICAID | LOC: M WHC 17:03 | PROVIDERS: ATTEND Obstetrics & Gynecology | DX: Z53.9 Procedure and treatment not carried out, unspecified reason (principal) ==

== ENCOUNTER → 2021-01-04 | Outpatient (CLI) | payer OTHER, MEDICAID ==
--- NOTE | 2021-01-04 14:04 | REP ---
INDICATION: F/U ANATOMY. COMPARISON: 11/09/2020. TECHNIQUE: Real-time sonographic evaluation of the gravid uterus performed. FINDINGS: Estimated gestational age is26 weeks 2 days, EDC 04/10/2021. Today's measurements indicate appropriate growth. Presentation: Transverse Placenta posterior, grade 1, without evidence of placenta previa. heart rate is recorded at 147 beats per minute. Amniotic fluid is subjectively normal. Biometry chart: BPD: 67 mm, 27 weeks 0 days, 66th percentile. HC: 260 mm, 28 weeks 2 days, 91st percentile AC: 225 mm, 26 weeks 6 days, 63rd percentile Femur length: 52 mm, 27 weeks 5 days, 80th percentile HC to AC ratio: 1.15, normal range 1.00-1.19. Estimated weight: 1059g, 81st percentile. anatomy: Cranium: Grossly normal Lateral Ventricles/Choroid Plexus: Grossly normal Posterior Fossa/Cerebellum: Grossly normal Nose/lips/profile: Grossly normal Four chamber heart: Echogenic focus left ventricle likely related to chordae tendineae Right ventricular outflow tract: Not well visualized Left ventricular outflow tract: Not well visualized Left-sided stomach: Grossly normal Kidneys: Grossly normal Bladder: Grossly normal Cord Insertion: Grossly normal 3 vessel cord: Grossly normal Spine: Previously seen. IMPRESSION: Viable single intrauterine gestation as above. <Electronically signed by Jermaine Jameson > 01/04/21 1401
== END ==
LOC: M WHC 09:01
PROVIDERS: ATTEND Obstetrics & Gynecology
DX: Z34.92 Encounter for supervision of normal pregnancy, unspecified, second trimester (principal); Z3A.26 26 weeks gestation of pregnancy

== ENCOUNTER → 2021-01-15 | Outpatient (CLI) | payer OTHER, MEDICAID ==
[2021-01-15 10:57] LABS: HEMATOCRIT 33.5 % (36.0-47.0); HEMOGLOBIN 10.8 g/dl (12.0-15.5); MEAN CORPUSCULAR HEMOGLOBIN 27.3 pg (27.0-33.0); MEAN CORPUSCULAR HGB CONC 32.2 g/dl (32.0-36.5); MEAN CORPUSCULAR VOLUME 84.6 fl (80.0-96.0); PLATELET COUNT, AUTOMATED 172 10^3/uL (150-450); RED BLOOD COUNT 3.96 10^6/uL (4.00-5.40); WHITE BLOOD COUNT 8.6 10^3/uL (4.0-10.0)
[2021-01-15 11:35] LABS: HEMOGLOBIN A1c 5.2 %
[2021-01-15 13:39] LABS: GC DNA AMPLIFICATION NEGATIVE (NEGATIVE)
== END ==
LOC: M PLALAB 09:05
PROVIDERS: ATTEND Advanced Practice Midwife
DX: O24.312 Unspecified pre-existing diabetes mellitus in pregnancy, second trimester (principal)

== ENCOUNTER 2021-01-29 12:14 | Outpatient (CLI) | payer OTHER, MEDICAID ==
[~2021-01-29] VITALS: Ht 162.6 cm; Wt 116.1 kg
--- NOTE | 2021-01-29 14:38 | REP ---
INDICATION: amari, r/o ROM COMPARISON: None. TECHNIQUE: Transabdominal obstetrical ultrasound with color Doppler evaluation. FINDINGS: Examination demonstrates a single live intrauterine in transverse presentation. motion is identified by technologist. Placenta is noted posterior and grade 0 without evidence for placenta previa or abruption. Amniotic fluid volume is normal. Cervix measures 4.2 cm in length and appears closed.. Selected gestational age: 29 weeks 6 days with CAROL 04/10/2021. FHR equals 149 beats per minute. AMARI: 20.1 cm (9.0-23.4) Umbilical artery SD ratio: 3.24 (1.97-4.12) Biophysical profile score: 8/8 IMPRESSION: Single live intrauterine in transverse lie. Amniotic fluid volume and biophysical profile score are normal. <Electronically signed by Perez Fuentes > 01/29/21 [id number]
--- NOTE | 2021-01-29 15:06 | IPNPDOC ---
Text Note Date of Service The patient was seen on 01/29/21. NOTE Outpatient 35yo G [id number] CAROL 04/10/2021. Presents @ 29w5d with complaints of loss of fluid since last night. Denies bleeding or UC. Reports fetus is active Hx significant for pregestational diabetes, on metformin, Gastric sleeve, HELLP and DVT with in 2017. No distress VSS, afebrile, normotensive Abdomen soft, gravid Cat I tracing Spec exam, moderate creamy white discharge, neg pool, neg valsalva, neg nitrazine, neg fern BPP 8/8, AMARI 20.1 Discharged home. Rec appt next week. Warnings reviewed. Jennifer Hernandez CNM Jan 29, 2021 15:06
== END 2021-01-29 15:00 | disposition home or self-care (01) ==
LOC: M LDO 12:14
PROVIDERS: ATTEND Advanced Practice Midwife
DX: O26.893 Other specified pregnancy related conditions, third trimester (principal); N89.8 Other specified noninflammatory disorders of vagina; O24.415 Gestational diabetes mellitus in pregnancy, controlled by oral hypoglycemic drugs; Z3A.29 29 weeks gestation of pregnancy; Z86.718 Personal history of other venous thrombosis and embolism; Z79.84 Long term (current) use of oral hypoglycemic drugs; Z87.59 Personal history of other complications of pregnancy, childbirth and the puerperium; O99.843 Bariatric surgery status complicating pregnancy, third trimester

== ENCOUNTER → 2021-02-15 | Outpatient (CLI) | payer OTHER, MEDICAID ==
--- NOTE | 2021-02-15 16:49 | REP ---
INDICATION: GROWTH GESTATIONAL DIABETES. COMPARISON: 01/04/2021. TECHNIQUE: Real-time sonographic evaluation of the gravid uterus performed. FINDINGS: Estimated gestational age is32 weeks 2 days, EDC 04/10/2021. Today's measurements indicate greater than expected growth. Presentation: Transverse, head maternal right side. Placenta posterior, grade 1, without evidence of placenta previa. heart rate is recorded at 143 beats per minute. Amniotic fluid is subjectively normal. AMARI 22.3, normal 8.5-24.3. Closed cervical length is measured at 5.5 cm. Biometry chart: BPD: 86 mm, 34 weeks 6 days, 87th percentile. HC: 319 mm, 35 weeks 6 days, over 95th percentile AC: 299 mm, 33 weeks 6 days, 73rd percentile Femur length: 69 mm, 35 weeks 3 days, over 95th percentile HC to AC ratio: 1.07, normal range 0.95-1.14. Estimated weight: 2470g, over 97th percentile. IMPRESSION: Viable single intrauterine gestation as above. <Electronically signed by Jermaine Jameson > 02/15/21 [id number]
== END ==
LOC: M WHC 15:16
PROVIDERS: ATTEND Advanced Practice Midwife
DX: O24.919 Unspecified diabetes mellitus in pregnancy, unspecified trimester (principal)

== ENCOUNTER 2021-02-24 15:43 | Outpatient (CLI) | payer OTHER, MEDICAID ==
[~2021-02-24] VITALS: Ht 162.6 cm; Wt 115.7 kg
[2021-02-24 16:52] VITALS: BP 126/73
[2021-02-24 17:35] LABS: APPEARANCE, URINE CLEAR (CLEAR); BACTERIA, URINE AUTO 2+ (NEGATIVE); BILIRUBIN, URINE AUTO NEGATIVE (NEGATIVE); BLOOD, URINE BLOOD NEGATIVE (NEGATIVE); COLOR, URINE YELLOW (YELLOW); GLUCOSE, URINE (UA) AUTO NEGATIVE (NEGATIVE); KETONE, URINE AUTO NEGATIVE (NEGATIVE); LEUKOCYTE ESTERASE, URINE AUTO 1+ (NEGATIVE); NITRITE, URINE AUTO NEGATIVE (NEGATIVE); PROTEIN, URINE AUTO NEGATIVE (NEGATIVE); RBC, URINE AUTO 0 /HPF (0-3); SPECIFIC GRAVITY URINE AUTO 1.011 (1.002-1.035); SQUAMOUS EPITHELIAL CELL UR AU 1 /HPF (0-6); UROBILINOGEN, URINE AUTO 0.2 mg/dL (0.0-2.0); WBC, URINE AUTO 2 /HPF (0-3)
[2021-02-24 17:49] VITALS: BP 121/74
--- NOTE | 2021-02-24 20:51 | IPN ---
PROGRESS NOTE DATE: 02/24/2021 SUBJECTIVE: Jodi is a 35-year-old, 3, para 1, 1, 0, 2 at 33 and 4/7 weeks gestation, EDC of 04/10/21 based on last menstrual period and confirmed by first trimester ultrasound. She presents to labor and delivery today following routine appointment where she was having antepartal tested and noted to have contractions every 2-3 minutes regularly. She denies vaginal bleeding and leakage of fluid. The fetus has been active. Her care was initiated at [facility] and [facility] in the first trimester. Her course was complicated by advanced maternal age, prior section with a desire for a TOLAC, preexisting diabetes that has been managed with Metformin, a history of a DVT in 2016 with her , prior section, history of HELLP Syndrome. She has been taking aspirin 81 mg daily. She did undergo baseline testing with normal preeclamptic profile and a spot urine of 0.06. She has a history of gastric sleeve surgery. OBSTETRIC HISTORY: September 2008; 41 weeks gestation, 7 pounds 7 ounce female vaginal delivery. September 2016; 35 weeks gestation, 5 pounds 14 ounces female section, breech presentation, HELLP Syndrome. OBSTETRIC LABS: O+. Antibody screen negative. Gonorrhea and Chlamydia negative. Hepatitis C negative. HIV negative. Hepatitis B negative. Syphilis negative. Urine culture negative. GBS unknown. Rubella immune. Initial hemoglobin A1C at the onset of her care was 5.6; a repeat in December of 2020 was 5.2. PAST MEDICAL HISTORY: Obesity, childhood varicella, anemia, history of a DVT; currently managed with Lovenox, and reflux. PAST SURGICAL HISTORY: Cholecystectomy, section, gastric bypass, tympanostomy tube insertion. FAMILY HISTORY: Melanoma, hypertension, lung cancer, stroke and heart disease. SOCIAL HISTORY: The patient is . She is a nonsmoker. She denies alcohol and drug use. No history of sexually transmitted infections. She denies history of abuse; physical, sexual and emotional. ALLERGIES: Codeine-hives and Penicillin which causes hives. She is also allergic to Chlorhexidine, iodine and multiple soaps. OBJECTIVE: Temperature 97.8, pulse 80, respirations 18, blood pressure 126/73. She is alert and oriented x3. She is smiling and talkative. She does not appear uncomfortable at this time. heart rate 145 with moderate variability. Positive accelerations. Negative decelerations. Contractions at this time are every 4 minutes. Her sterile vaginal exam, which was performed in the office by Dr. Oliva Paul, was reported to be closed. Her fibronectin returned her negative results. Urinalysis shows +1 leukocyte esterase and positive bacteria; all else is negative. ASSESSMENT: Intrauterine at 33 and 4/7 weeks, heart rate is category 1, not in active labor. PLAN: Urine for c/s. Discharge the patient home. She is to keep her appointment on a weekly basis for antepartal testing. I did review discharge instructions that include signs and symptoms of active labor, movement counts, danger signs to report, access to care. The patient has had her questions answered and does request discharge home at this time. HILARIO
== END 2021-02-24 18:30 | disposition home or self-care (01) ==
LOC: M LDO 15:43
PROVIDERS: ATTEND Advanced Practice Midwife
DX: O60.03 Preterm labor without delivery, third trimester (principal); O34.219 Maternal care for unspecified type scar from previous cesarean delivery; O14.23 HELLP syndrome (HELLP), third trimester; O24.913 Unspecified diabetes mellitus in pregnancy, third trimester; Z3A.33 33 weeks gestation of pregnancy; Z88.0 Allergy status to penicillin

== ENCOUNTER → 2021-03-08 | Outpatient (CLI) | payer OTHER, MEDICAID ==
--- NOTE | 2021-03-08 13:33 | REP ---
INDICATION: DIABETES IN COMPARISON: 02/15/2021 TECHNIQUE: Transabdominal obstetrical ultrasound with color Doppler evaluation. FINDINGS: Examination demonstrates a single live intrauterine in cephalic presentation. motion is identified by technologist. Placenta is noted posterior and grade 2 without evidence for placenta previa or abruption. Amniotic fluid volume is normal. Cervix appears closed.. Selected gestational age: 35 weeks 2 days with CAROL 04/10/2021. Gestational age by current measurements 36 weeks 5 days with CAROL 03/31/2021. FHR equals 132 beats per minute. BPD: 9.0 cm at 36 weeks 4 days HC: 33.0 cm at 37 weeks 4 days AC: 32.7 cm at 36 weeks 4 days FL: 7.1 cm at 36 weeks 3 days HL: 6.3 cm at 36 weeks 3 days HC/AC: 1.01 Estimated weight 2998 grams (84thpercentile). AMARI: 24.4 cm (7.8-24.9) Umbilical artery SD ratio: 2.35 (1.67-3.57) IMPRESSION: Single live advanced gestation in cephalic presentation demonstrating appropriate interval growth. <Electronically signed by Perez Fuentes > 03/08/21 2024
== END ==
LOC: M WHC 12:25
PROVIDERS: ATTEND Advanced Practice Midwife
DX: O24.913 Unspecified diabetes mellitus in pregnancy, third trimester (principal); Z3A.35 35 weeks gestation of pregnancy

== ENCOUNTER → 2021-03-09 | Outpatient (REF) | payer OTHER, MEDICAID | LOC: M SFHCWAGY 16:53 | PROVIDERS: ATTEND Advanced Practice Midwife | DX: Z36.85 Encounter for antenatal screening for Streptococcus B (principal); Z3A.35 35 weeks gestation of pregnancy ==

== ENCOUNTER 2021-03-20 11:32 | Inpatient (IN) | payer OTHER, MEDICAID ==
[2021-03-20] VITALS (36 sets, daily range): BP systolic 95–163; BP diastolic 51–96
[~2021-03-20] VITALS: Ht 162.6 cm; Wt 114.8 kg
[2021-03-20] MEDS ORDERED: ceFAZolin SOD 2 GM in IV 1 EA IV STA (11:40)
--- NOTE | 2021-03-20 11:53 | HPEPDOC ---
Obstetrical History & Physical General Date of Admission Mar 20, 2021 at 11:32 History of Present Illness 35 yo female at 37 0/7 weeks gestation by LMP consistent with 6-week ultrasound (EDC equals 04/10/2021) presents for labor induction. The indication for induction less than 39 weeks gestation is pregestational diabetes controlled with Metformin. She denies contractions or vaginal bleeding. She has been on anticoagulation with heparin due to history of DVT. She held her dose the morning of admission. Information Provided By: Patient Age: 35 : 3 Term: 1 Pre-term: 1 Abortions: 0 Livin Care Care: Good Care Dating Final EDC: Apr 10, 2021 Final EDC by: LMP, 1st trimester (US) Antepartum Course Diagnos(e)s 1. History of prior section. Patient desires option. Risks discussed. 2. History of DVT. Patient on heparin. 3. History of preeclampsia with help syndrome. Patient took baby aspirin during the . Past Medical History Past Obstetrical History : Past Obstetrical History: Multigravida Past Medical History Medical History OB Hx: 1 10/05/2008 41 7-7oz female vaginal epidural SMC: no 2 10/07/2016 36 5-14.8oz female spinal [place] yes HELLP syndrome Breech Med hx: 1. DVT surg: section Social History Marital Status: Family situation: Spouse/partner home Psychosocial History: No pertinent psych hx Allergies Coded Allergies: DYE'S (COLOR'S NOT IODINATED) (Verified Allergy, Severe, UNSURE WHAT DYE - tongue swelling, 01/17/20) amoxicillin (Verified Allergy, Severe, rash, difficulty breathing, 01/17/20) clavulanic acid (Verified Allergy, Severe, difficulty breathing, 01/17/20) Penicillins (Verified Allergy, Intermediate, RASH, 01/20/20) chlorhexidine (Verified Allergy, Intermediate, CHLORAPREP - RASH/ITCHING, 01/20/20) codeine (Verified Allergy, Mild, itchyness, iritablility, 01/17/20) povidone-iodine (Verified Allergy, Mild, RASH, 01/17/20) soap (Verified Allergy, Mild, RASH, 01/17/20) Medications Scheduled Vit,Calc76/Iron/Folic (Prenatabs Rx Tablet) 1 Each Tablet, 1 TAB PO DAILY Miscellaneous Medications Aspirin (Aspirin EC) 81 Mg Tablet. Enoxaparin Sodium (Enoxaparin Sodium) 40 Mg/0.4 Ml Syringe Physical Examination Physical Examination GENERAL: Alert and oriented times three. BREAST: . ABDOMEN: Gravid and non-tender to touch. FETUS: Is vertex (VTX) by sterile vaginal examination (SVE), fetus is vertex (VTX) by Navjot. HEART RATE: Regular rate and rhythm. LUNGS: Clear to auscultation (CTA). EXTREMITIES: No edema. No clonus. Deep tendon reflexes (DTRs) + . Laboratory Data 24H LABS Laboratory Tests 2 03/20/21 11:41: Serology Scanned Report Hepatitis B Testing Pertinent Laboratoy Data Blood Type: O+ Group B Streptococcus: Positive Assessment Variability: Moderate Accelerations: Positive Decelerations: None Tocometer Contractions: Yes Frequency: irregular Assessment/Plan Assessment 35 yo female at 37 0/7 weeks gestation by LMP consistent with 6-week ultrasound (EDC equals 04/10/2021) presents for labor induction. The indication for induction less than 39 weeks gestation is pregestational diabetes controlled with Metformin. Plan Admit and orient. Broadcast Systems Engineer and consent. Diet: Regular. Group B Streptococcus (GBS) negative. Labs and intravenous (IV) per unit protocol.. Plan Pitocin for labor induction due to history of prior section Anticipate normal spontaneous delivery (). C-S as appropriate. ITZEL LAYNE MD Mar 20, 2021 11:53
[2021-03-20] MEDS ORDERED: OXYTOCIN DRIP 30 UNITS in IV 1 EA IV SCH (11:55)
[2021-03-20] MEDS ORDERED: METF10004 PO (11:59)
[2021-03-20] MEDS ORDERED: ACET325C5 PO (11:59)
[2021-03-20] MEDS ORDERED: HEPA10IN30 SC (11:59)
[2021-03-20] MEDS ORDERED: HOME MED LIST COMPLETE! XX SCH (12:00)
[2021-03-20 12:41] LABS: HEMATOCRIT 34.4 % (36.0-47.0); HEMOGLOBIN 11.4 g/dl (12.0-15.5); MEAN CORPUSCULAR HEMOGLOBIN 27.7 pg (27.0-33.0); MEAN CORPUSCULAR HGB CONC 33.1 g/dl (32.0-36.5); MEAN CORPUSCULAR VOLUME 83.5 fl (80.0-96.0); PLATELET COUNT, AUTOMATED 178 10^3/uL (150-450); RED BLOOD COUNT 4.12 10^6/uL (4.00-5.40); WHITE BLOOD COUNT 6.9 10^3/uL (4.0-10.0)
[2021-03-20] MEDS: LR 1,000 ML IV SCH ×2 (13:01→19:27)
--- NOTE | 2021-03-20 14:52 | IPNPDOC ---
Text Note Date of Service The patient was seen on 03/20/21. NOTE Patient noted to be breech by bedside ultrasound. Options reviewed including planned section versus external cephalic version. Patient decided to attempt external cephalic version. Written consent obtained. Patient already had an IV in place. Anesthesia was notified. Patient was placed in the supine position. Ultrasound guidance was used throughout the procedure. A liberal amount of ultrasound gel applied to the abdomen. A single attempt was made where downward traction traction was placed on the vertex and upward pressure placed on the buttocks. The fetus was rotated in a clockwise direction. After 1 attempt the baby was noted to be vertex by ultrasound. heart rate confirmed to be normal throughout the brief procedure. The patient tolerated the procedure well. VS,Fishbone, I+O VS, Fishbone, I+O Laboratory Tests 03/20/21 12:24 Vital Signs Date Time Temp Pulse Resp B/P (MAP) Pulse Ox O2 Delivery O2 Flow Rate FiO2 03/20/21 13:10 86 20 130/80 (97) 03/20/21 11:50 97.5 99 Room Air ITZEL LAYNE MD Mar 20, 2021 14:52
[2021-03-20] MEDS ORDERED: FENTANYL 2MCG/ML ROPIVACAINE 0.2% IN 0.9% NACL 100ML IVBAG As Ordered ONE (19:33)
[2021-03-20] MEDS ORDERED: diphenhydrAMINE 50MG/ML VIAL (J1200) IV PRN (21:20)
[2021-03-20] MEDS ORDERED: ONDANSETRON 4MG/2ML VIAL IV PRN (21:20)
[2021-03-20] MEDS ORDERED: NALOXONE INJ 0.4MG/1ML VIAL (J2310 PER 1MG) IV PRN (21:20)
[2021-03-20] MEDS ORDERED: REFRIGERATOR IV KEYS XX PRN (21:20)
[2021-03-20] MEDS ORDERED: EPIDURAL COMMENT XX SCH (21:20)
[2021-03-20] MEDS ORDERED: EPIDURAL/PCA KEYS XX PRN (21:20)
[2021-03-20] MEDS ORDERED: LACTATED RINGER'S 1000 ML IV PRN (21:20)
[2021-03-20] MEDS: ePHEDrine SULFATE 25 MG/5 ML(5MG/ML) SYRINGE IV PRN ×2 (21:22→21:30)
[2021-03-20] MEDS: FENTANYL/ROPIVACAINE/NACL BAG 100 ML EPIDURAL SCH (21:36)
[2021-03-21] VITALS (52 sets, daily range): BP systolic 95–148; BP diastolic 51–94
[2021-03-21] MEDS ORDERED: CALCIUM CARBONATE 500 MG CHEW U/D PO ONE (00:55)
[2021-03-21] MEDS ORDERED: FAMOTIDINE 20 MG TAB PO ONE (00:55)
[2021-03-21] MEDS: LR 1,000 ML IV SCH ×3 (01:49→14:47)
[2021-03-21] MEDS: ceFAZolin SOD 1 GM in D5W MINI-BAG PLUS 50 ML IV SCH ×3 (02:40→18:45)
[2021-03-21] MEDS: ACETAMINOPHEN 500 MG TAB PO PRN ×3 (02:40→19:20)
[2021-03-21] MEDS: FENTANYL/ROPIVACAINE/NACL BAG 100 ML EPIDURAL SCH ×2 (06:15→17:42)
[2021-03-21] MEDS: ePHEDrine SULFATE 25 MG/5 ML(5MG/ML) SYRINGE IV PRN (08:49)
--- NOTE | 2021-03-21 10:34 | IPNPDOC ---
Text Note Date of Service The patient was seen on 03/21/21. NOTE S: Comfortable with epidural O: AVSS NAD Abd: NT, gravid FHT: Category one toco: regular, moderate ext: NT SVE: 3 cm/50%/-3 soft anterior bedside ultrasound: vtx A/P 35 yo at 37 1/7 weeks, day#2 induction for pregestational diabetes, Unable to get intracervical catheter in after 2 separate attempts Unable to perform AROM due to high station and anterior position of cervix. Continue Pitocin at 16 mu/min VS,Fishbone, I+O VS, Fishbone, I+O Laboratory Tests 03/20/21 12:24 Vital Signs Date Time Temp Pulse Resp B/P (MAP) Pulse Ox O2 Delivery O2 Flow Rate FiO2 03/21/21 09:09 70 20 102/58 (73) 03/21/21 07:46 98.0 03/21/21 07:44 97 Room Air I&O- Last 24 Hours up to 6 AM 03/21/21 06:00 Intake Total 1860 ml Output Total 1550 ml Balance 310 ml ITZEL LAYNE MD Mar 21, 2021 10:34
[2021-03-21] MEDS ORDERED: IBUPROFEN 600MG TAB PO PRN (21:45)
[2021-03-21] MEDS ORDERED: OXYTOCIN DRIP 30 UNITS in IV 1 EA IV ONE (21:45)
[2021-03-21] MEDS ORDERED: DOCUSATE SODIUM 100MG CAPSULE PO PRN (21:45)
[2021-03-21] MEDS ORDERED: MEASLES,MUMPS,RUBELLA VACCINE INJ (MMR-II) (90707) SC SCH (21:45)
[2021-03-21] MEDS ORDERED: METHYLERGONOVINE MALEATE 0.2 MG TAB PO PRN (21:45)
[2021-03-21] MEDS ORDERED: DIBUCAINE 1% OINTMENT 30GM TOP PRN (21:45)
[2021-03-21] MEDS ORDERED: ACETAMINOPHEN TAB 650MG DOSE (2X325MG) PO PRN (21:45)
[2021-03-21] MEDS ORDERED: ACETAMINOPHEN 500 MG TAB PO PRN (21:45)
[2021-03-21] MEDS ORDERED: RHOGAM 300 MCG (1500 IU) INJ (J2790) IM SCH (21:45)
--- NOTE | 2021-03-21 21:52 | DNPDOC ---
[facility] Delivery Note Delivery Note DATE OF DELIVERY: March 21, 2021 PREDELIVERY DIAGNOSIS: 37-0/7 weeks' gestation, pregestational diabetes, induction, TOLAC POST DELIVERY DIAGNOSIS: Delivered. PROCEDURE: Spontaneous vaginal delivery, . 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 Itzel Layne MD ANESTHESIA: epidural. ESTIMATED BLOOD LOSS: 200 mL. FINDINGS: 6 pound 9 ounce (2130 g) male infant, Score 8/9, nuchal cord times 1. DELIVERY SUMMARY: Patient is a 35-year-old 3 now para 3 who was admitted to labor and delivery for induction. An external cephalic version was performed prior to starting the induction. She received IV Pitocin. An intracervical catheter was unable to be placed. AROM performed when able. After a 20 minute second stage of labor she had a spontaneous vaginal delivery of a 2130 gram male . Nuchal cord x 1 reduced. Shoulders delivered with ease. Placenta delivered spontaneously and appeared intact. Pt received IV Pitocin immediately after delivery of the placenta. No vaginal lacerations present. Sponge counts correct. ITZEL LAYNE MD Mar 21, 2021 21:52
[2021-03-21] MEDS ORDERED: METHYLERGONOVINE MALEATE 0.2 MG/ML VIAL (J2210) IM STA (22:14)
[2021-03-22 02:00] VITALS: BP 141/74
[2021-03-22 06:00] VITALS: BP 126/70
[2021-03-22 08:15] VITALS: BP 126/70
[2021-03-22] MEDS: PRENATAL VITAMINS CHEWABLE TABLET PO SCH (08:24)
[2021-03-22] MEDS: IBUPROFEN 800 MG TAB PO PRN ×2 (16:00→22:50)
[2021-03-22 17:39] VITALS: BP 127/67
[2021-03-23] MEDS ORDERED: COLA100C5 PO (08:36)
[2021-03-23] MEDS ORDERED: ACET-683 PO (08:36)
[2021-03-23] MEDS ORDERED: IBUP-1022 PO (08:36)
[2021-03-23] MEDS ORDERED: LOVE1INJ SC (08:36)
[2021-03-23] MEDS: PRENATAL VITAMINS CHEWABLE TABLET PO SCH (09:00)
== END 2021-03-23 14:20 | disposition home or self-care (01) | DRG 560 ==
LOC: M LDI 11:32 → EEVIPCON 11:32 → M OBS 03-22 00:07
PROVIDERS: ADMIT Specialist; ATTEND Specialist
PROC: 3E033VJ Introduction of Other Hormone into Peripheral Vein, Percutaneous Approach (ICD-10-PCS; 2021-03-20)
PROC: 10E0XZZ Delivery of Products of Conception, External Approach (ICD-10-PCS; principal; 2021-03-21)
PROC: 10907ZC Drainage of Amniotic Fluid, Therapeutic from Products of Conception, Via Natural or Artificial Opening (ICD-10-PCS; 2021-03-21)
DX: O24.425 Gestational diabetes mellitus in childbirth, controlled by oral hypoglycemic drugs (principal); O99.824 Streptococcus B carrier state complicating childbirth; Z37.0 Single live birth; Z3A.37 37 weeks gestation of pregnancy; Z79.01 Long term (current) use of anticoagulants; Z86.718 Personal history of other venous thrombosis and embolism; O34.211 Maternal care for low transverse scar from previous cesarean delivery; Z88.0 Allergy status to penicillin; Z88.5 Allergy status to narcotic agent; Z88.8 Allergy status to other drugs, medicaments and biological substances; O69.82X0 Labor and delivery complicated by other cord entanglement, without compression, not applicable or unspecified

== ENCOUNTER → 2021-09-07 | Outpatient (CLI) | payer OTHER, MEDICAID ==
[~2021-09-07] MED LIST changes: +ACET-683 PO; +ACET325C5 PO; +COLA100C5 PO; -D31000TA2 PO; -DICY20TA11 PO; +DICY20TA20 PO; +HEPA10IN30 SC; +IBUP-1022 PO; +LOVE1INJ SC; +METF10004 PO; +VITA100093 PO
== END ==
LOC: M PLALAB 11:12
PROVIDERS: ATTEND Internal Medicine Hematology
DX: Z53.9 Procedure and treatment not carried out, unspecified reason (principal)

== ENCOUNTER → 2021-12-08 | Outpatient (CLI) | payer MEDICAID, OTHER ==
[~2021-12-08] MED LIST changes: +ALBU2.5V10 INH; -ALBU83IN INH
== END ==
LOC: M RAD 14:16
PROVIDERS: ATTEND Physician Assistant
DX: R42 Dizziness and giddiness (principal)

== ENCOUNTER → 2022-03-17 | Outpatient (CLI) | payer OTHER | LOC: M RAD 12:44 | PROVIDERS: ATTEND Physician Assistant | DX: R05.2 Subacute cough (principal); R09.89 Other specified symptoms and signs involving the circulatory and respiratory systems ==

== ENCOUNTER → 2022-06-02 | Outpatient (CLI) | payer OTHER | LOC: M RAD 13:56 | PROVIDERS: ATTEND Physician Assistant | DX: N92.0 Excessive and frequent menstruation with regular cycle (principal) ==

== ENCOUNTER → 2022-08-10 | Outpatient (REF) | payer OTHER ==
[2022-08-10 17:25] LABS: HEMATOCRIT 33.5 % (36.0-47.0); HEMOGLOBIN 10.5 g/dl (12.0-15.5); MEAN CORPUSCULAR HEMOGLOBIN 24.6 pg (27.0-33.0); MEAN CORPUSCULAR HGB CONC 31.3 g/dl (32.0-36.5); MEAN CORPUSCULAR VOLUME 78.6 fl (80.0-96.0); PLATELET COUNT, AUTOMATED 259 10^3/uL (150-450); RED BLOOD COUNT 4.26 10^6/uL (4.00-5.40)
[2022-08-10 17:27] LABS: BLOOD UREA NITROGEN 9 MG/DL (9-23); CALCIUM LEVEL 8.3 MG/DL (8.5-10.1); CARBON DIOXIDE LEVEL 27 MMOL/L (20-31); CHLORIDE LEVEL 107 MMOL/L (98-107); CHOLESTEROL LEVEL 142 MG/DL (<200); CHOLESTEROL RISK RATIO 3.46 (<5); CREATININE FOR GFR 0.59 MG/DL (0.55-1.30); GLOMERULAR FILTRATION RATE > 60.0 (>60); GLUCOSE, FASTING 86 MG/DL (60-100); LDL CHOLESTEROL 77.8 MG/DL (<100); POTASSIUM SERUM 4.5 MMOL/L (3.5-5.1); SODIUM LEVEL 139 MMOL/L (136-145); TRIGLYCERIDES LEVEL 116 MG/DL (<150)
[2022-08-10 17:29] LABS: THYROID STIMULATING HORMONE 1.451 uIU/ML (0.55-4.78); TOTAL 25(OH) VITAMIN D 13.7 NG/ML (20.0-100.0)
[2022-08-10 18:31] LABS: HEMOGLOBIN A1c 5.6 % (4.0-6.0)
== END ==
LOC: M LAB REF 16:12
PROVIDERS: ATTEND Physician Assistant
DX: Z86.32 Personal history of gestational diabetes (principal); R94.6 Abnormal results of thyroid function studies; E66.9 Obesity, unspecified; E55.9 Vitamin D deficiency, unspecified

== ENCOUNTER → 2022-10-05 | Outpatient (REF) | payer OTHER ==
[2022-10-05 17:54] LABS: TOTAL 25(OH) VITAMIN D 26.1 NG/ML (20.0-100.0)
[2022-10-05 17:55] LABS: FERRITIN 11.4 NG/ML (7.3-270.7); FOLATE 18.2 NG/ML (>5.4); PERCENT SATURATION 21.3 % (13.2-45.0)
[2022-10-05 18:08] LABS: BASO % 0.4 % (0.0-1.0); EOS # 0.2 10^3/uL (0.0-0.5); EOS % 2.6 % (0.0-3.0); HEMATOCRIT 35.7 % (36.0-47.0); HEMOGLOBIN 11.4 g/dl (12.0-15.5); LYMPH # 2.6 10^3/uL (1.5-5.0); LYMPH % 33.6 % (24.0-44.0); MEAN CORPUSCULAR HEMOGLOBIN 25.7 pg (27.0-33.0); MEAN CORPUSCULAR HGB CONC 31.9 g/dl (32.0-36.5); MEAN CORPUSCULAR VOLUME 80.6 fl (80.0-96.0); MONO # 0.5 10^3/uL (0.0-0.8); MONO % 7.1 % (2.0-8.0); NEUTROPHILS # 4.2 10^3/uL (1.5-8.5); NEUTROPHILS % 55.9 % (36.0-66.0); PLATELET COUNT, AUTOMATED 263 10^3/uL (150-450); RED BLOOD COUNT 4.43 10^6/uL (4.00-5.40); WHITE BLOOD COUNT 7.6 10^3/uL (4.0-10.0)
== END ==
LOC: M LAB REF 16:25
PROVIDERS: ATTEND Physician Assistant
DX: E55.9 Vitamin D deficiency, unspecified (principal); D64.9 Anemia, unspecified

== ENCOUNTER 2022-11-15 09:03 | Emergency (ER) | payer OTHER ==
[~2022-11-15] VITALS: Ht 162.6 cm; Wt 130.7 kg
[2022-11-15] MEDS ORDERED: FERR325T19 (09:18)
[2022-11-15] MEDS ORDERED: FAMO20TA5 (09:18)
[2022-11-15] MEDS ORDERED: D 50CAP2 (09:18)
[2022-11-15] MEDS ORDERED: BUTA-198 (09:18)
[2022-11-15] MEDS ORDERED: ZOLO100T (09:18)
[2022-11-15] MEDS ORDERED: CETI-24 (09:18)
[2022-11-15] MEDS ORDERED: diphenhydrAMINE 50MG/ML VIAL IV ONE (11:30)
[2022-11-15] MEDS ORDERED: NS 1,000 ML IV ONE (11:30)
[2022-11-15] MEDS ORDERED: PROMETHAZINE 25MG/ML 1ML VIAL IV ONE (11:30)
[2022-11-15 12:06] LABS: BASO % 0.4 % (0.0-1.0); EOS # 0.2 10^3/uL (0.0-0.5); EOS % 3.1 % (0.0-3.0); HEMATOCRIT 38.1 % (36.0-47.0); HEMOGLOBIN 12.1 g/dl (12.0-15.5); LYMPH # 2.3 10^3/uL (1.5-5.0); LYMPH % 33.3 % (24.0-44.0); MEAN CORPUSCULAR HEMOGLOBIN 26.2 pg (27.0-33.0); MEAN CORPUSCULAR HGB CONC 31.8 g/dl (32.0-36.5); MEAN CORPUSCULAR VOLUME 82.5 fl (80.0-96.0); MONO # 0.6 10^3/uL (0.0-0.8); MONO % 8.7 % (2.0-8.0); NEUTROPHILS # 3.7 10^3/uL (1.5-8.5); NEUTROPHILS % 54.4 % (36.0-66.0); PLATELET COUNT, AUTOMATED 225 10^3/uL (150-450); RED BLOOD COUNT 4.62 10^6/uL (4.00-5.40); WHITE BLOOD COUNT 6.8 10^3/uL (4.0-10.0)
[2022-11-15 12:22] LABS: ERYTHROCYTE SEDIMENTATION RATE 37 mm/hr (0-20)
[2022-11-15 12:35] LABS: C REACTIVE PROTEIN QUANTITATIV < 0.40 MG/DL (<1.0)
[2022-11-15 12:36] LABS: ALBUMIN 3.9 G/DL (3.2-5.2); ALKALINE PHOSPHATASE 97 U/L (46-116); ALT/SGPT 18 U/L (7.0-40); AST/SGOT < 8 U/L (<34); BILIRUBIN,DIRECT 0.1 MG/DL (<0.4); BILIRUBIN,TOTAL 0.4 MG/DL (0.3-1.2); BLOOD UREA NITROGEN 10 MG/DL (9-23); CALCIUM LEVEL 9.1 MG/DL (8.5-10.1); CARBON DIOXIDE LEVEL 26 MMOL/L (20-31); CHLORIDE LEVEL 106 MMOL/L (98-107); CREATININE FOR GFR 0.47 MG/DL (0.55-1.30); GLOMERULAR FILTRATION RATE > 60.0 (>60); GLUCOSE, FASTING 100 MG/DL (60-100); HCG, SERUM QUALITATIVE NEGATIVE (NEGATIVE); MAGNESIUM LEVEL 1.7 MG/DL (1.8-2.4); POTASSIUM SERUM 4.3 MMOL/L (3.5-5.1); SODIUM LEVEL 137 MMOL/L (136-145); TOTAL PROTEIN 7.3 G/DL (5.7-8.2)
[2022-11-15 14:05] LABS: APPEARANCE, URINE CLEAR (CLEAR); BACTERIA, URINE AUTO NEGATIVE (NEGATIVE); BILIRUBIN, URINE AUTO NEGATIVE (NEGATIVE); BLOOD, URINE BLOOD NEGATIVE (NEGATIVE); COLOR, URINE YELLOW (YELLOW); GLUCOSE, URINE (UA) AUTO NEGATIVE (NEGATIVE); KETONE, URINE AUTO NEGATIVE (NEGATIVE); LEUKOCYTE ESTERASE, URINE AUTO TRACE (NEGATIVE); NITRITE, URINE AUTO NEGATIVE (NEGATIVE); PROTEIN, URINE AUTO NEGATIVE (NEGATIVE); RBC, URINE AUTO 2 /HPF (0-3); SPECIFIC GRAVITY URINE AUTO 1.015 (1.002-1.035); SQUAMOUS EPITHELIAL CELL UR AU 3 /HPF (0-6); UROBILINOGEN, URINE AUTO 0.2 mg/dL (0.0-2.0); WBC, URINE AUTO 4 /HPF (0-3)
[2022-11-15 14:21] VITALS: TEMP 98.2
[2022-11-15] MEDS ORDERED: LABETALOL 100MG/20ML VIAL IV STA (14:39)
[2022-11-15 14:52] VITALS: BP 204/101
[2022-11-15 15:34] VITALS: BP 185/104; O2SAT 98
[2022-11-15] MEDS ORDERED: CHLO125TA PO (16:04)
== END 2022-11-15 16:12 | disposition home or self-care (01) ==
LOC: M ED 09:03
DX: I10 Essential (primary) hypertension (principal); G43.909 Migraine, unspecified, not intractable, without status migrainosus; Z98.84 Bariatric surgery status; Z79.1 Long term (current) use of non-steroidal anti-inflammatories (NSAID); Z79.899 Other long term (current) drug therapy
CPT/HCPCS: 36415; 70450; 80048; 80076; 81001; 83735; 84703; 85025; 85652; 86140; 93005; 96361; 96374; 96375; 99284; J1100; J1200; J1920; J2550

== ENCOUNTER 2022-11-18 20:57 | Emergency (ER) | payer OTHER ==
[~2022-11-18] VITALS: Ht 162.6 cm; Wt 129.1 kg
[~2022-11-18 20:57] MED LIST changes: +BUTA-198; +CETI-24; +CHLO125TA PO; +D 50CAP2; +FAMO20TA5; +FERR325T19; +ZOLO100T
[2022-11-18 20:58] VITALS: TEMP 97.5
[2022-11-18] MEDS ORDERED: NS 1,000 ML IV ONE (22:50)
[2022-11-18] MEDS ORDERED: hydrALAZINE 20MG/ML 1ML VIAL IV STA (22:52)
[2022-11-18 23:31] LABS: BASO # 0.1 10^3/uL (0.0-0.2); BASO % 0.5 % (0.0-1.0); EOS # 0.3 10^3/uL (0.0-0.5); EOS % 2.4 % (0.0-3.0); HEMATOCRIT 40.2 % (36.0-47.0); HEMOGLOBIN 13.1 g/dl (12.0-15.5); LYMPH # 3.5 10^3/uL (1.5-5.0); LYMPH % 34.3 % (24.0-44.0); MEAN CORPUSCULAR HEMOGLOBIN 26.1 pg (27.0-33.0); MEAN CORPUSCULAR HGB CONC 32.6 g/dl (32.0-36.5); MEAN CORPUSCULAR VOLUME 80.1 fl (80.0-96.0); MONO # 0.7 10^3/uL (0.0-0.8); NEUTROPHILS # 5.7 10^3/uL (1.5-8.5); NEUTROPHILS % 55.5 % (36.0-66.0); RED BLOOD COUNT 5.02 10^6/uL (4.00-5.40); WHITE BLOOD COUNT 10.3 10^3/uL (4.0-10.0)
[2022-11-18 23:35] VITALS: BP 153/99
[2022-11-18 23:53] LABS: BLOOD UREA NITROGEN 10 MG/DL (9-23); CALCIUM LEVEL 9.4 MG/DL (8.5-10.1); CARBON DIOXIDE LEVEL 24 MMOL/L (20-31); CHLORIDE LEVEL 102 MMOL/L (98-107); CREATININE FOR GFR 0.54 MG/DL (0.55-1.30); GLOMERULAR FILTRATION RATE > 60.0 (>60); GLUCOSE, FASTING 111 MG/DL (60-100); MAGNESIUM LEVEL 1.8 MG/DL (1.8-2.4); POTASSIUM SERUM 4.2 MMOL/L (3.5-5.1); SODIUM LEVEL 136 MMOL/L (136-145)
[2022-11-18 23:56] LABS: HCG, SERUM QUALITATIVE NEGATIVE (NEGATIVE)
[2022-11-19 00:45] VITALS: BP 127/82; O2SAT 99
[2022-11-20 10:01] LABS: PLATELET COUNT, AUTOMATED 220 10^3/uL (150-450)
== END 2022-11-19 01:04 | disposition home or self-care (01) ==
LOC: M ED 20:57
DX: R51.9 Headache, unspecified (principal); I10 Essential (primary) hypertension; K21.9 Gastro-esophageal reflux disease without esophagitis; F32.A Depression, unspecified; Z88.0 Allergy status to penicillin; Z88.1 Allergy status to other antibiotic agents; Z88.8 Allergy status to other drugs, medicaments and biological substances; Z91.048 Other nonmedicinal substance allergy status; Z79.1 Long term (current) use of non-steroidal anti-inflammatories (NSAID); Z79.899 Other long term (current) drug therapy
CPT/HCPCS: 80048; 83735; 84703; 85025; 96374; 99284; J0360

== ENCOUNTER → 2022-11-22 | Outpatient (REF) | payer OTHER ==
[2022-11-22 18:34] LABS: BASO # 0.1 10^3/uL (0.0-0.2); BASO % 0.6 % (0.0-1.0); EOS # 0.2 10^3/uL (0.0-0.5); EOS % 2.3 % (0.0-3.0); HEMATOCRIT 39.6 % (36.0-47.0); HEMOGLOBIN 12.8 g/dl (12.0-15.5); LYMPH % 33.4 % (24.0-44.0); MEAN CORPUSCULAR HEMOGLOBIN 26.4 pg (27.0-33.0); MEAN CORPUSCULAR HGB CONC 32.3 g/dl (32.0-36.5); MEAN CORPUSCULAR VOLUME 81.8 fl (80.0-96.0); MONO # 0.6 10^3/uL (0.0-0.8); MONO % 7.1 % (2.0-8.0); PLATELET COUNT, AUTOMATED 222 10^3/uL (150-450); RED BLOOD COUNT 4.84 10^6/uL (4.00-5.40); WHITE BLOOD COUNT 8.8 10^3/uL (4.0-10.0)
[2022-11-22 18:53] LABS: IRON (FE) 110 UG/DL (50-170)
[2022-11-22 18:55] LABS: FERRITIN 19.5 NG/ML (7.3-270.7); PERCENT SATURATION 28.4 % (13.2-45.0); TOTAL IRON BINDING CAPACITY 387 UG/DL (250-425)
[2022-11-22 18:56] LABS: BLOOD UREA NITROGEN 9 MG/DL (9-23); CARBON DIOXIDE LEVEL 26 MMOL/L (20-31); CHLORIDE LEVEL 102 MMOL/L (98-107); CREATININE FOR GFR 0.55 MG/DL (0.55-1.30); GLOMERULAR FILTRATION RATE > 60.0 (>60); GLUCOSE, FASTING 105 MG/DL (60-100); POTASSIUM SERUM 4.4 MMOL/L (3.5-5.1); SODIUM LEVEL 138 MMOL/L (136-145)
== END ==
LOC: M LAB REF 17:40
PROVIDERS: ATTEND Physician Assistant
DX: D64.9 Anemia, unspecified (principal); R03.0 Elevated blood-pressure reading, without diagnosis of hypertension

== ENCOUNTER → 2023-01-05 | Outpatient (CLI) | payer OTHER | LOC: M CARPUL 10:35 | PROVIDERS: ATTEND Physician Assistant | DX: R07.89 Other chest pain (principal) ==

== ENCOUNTER → 2024-01-02 | Outpatient (REF) | payer OTHER | LOC: M LAB REF 16:06 | PROVIDERS: ATTEND Physician Assistant | DX: J02.9 Acute pharyngitis, unspecified (principal) ==

== ENCOUNTER → 2024-05-17 | Outpatient (REF) | payer OTHER ==
[2024-05-17 17:45] LABS: HEMATOCRIT 36.2 % (36.0-47.0); HEMOGLOBIN 11.4 g/dl (12.0-15.5); MEAN CORPUSCULAR HEMOGLOBIN 25.7 pg (27.0-33.0); MEAN CORPUSCULAR HGB CONC 31.5 g/dl (32.0-36.5); MEAN CORPUSCULAR VOLUME 81.7 fl (80.0-96.0); PLATELET COUNT, AUTOMATED 281 10^3/uL (150-450); RED BLOOD COUNT 4.43 10^6/uL (4.00-5.40); WHITE BLOOD COUNT 9.2 10^3/uL (4.0-10.0)
[2024-05-17 18:06] LABS: ALBUMIN 3.8 G/DL (3.2-5.2); ALKALINE PHOSPHATASE 103 U/L (35-104); ALT/SGPT 19 U/L (7.0-40); AST/SGOT 15 U/L (<34); BILIRUBIN,TOTAL 0.2 MG/DL (0.3-1.2); BLOOD UREA NITROGEN 11 MG/DL (9-23); CARBON DIOXIDE LEVEL 24 MMOL/L (20-31); CHLORIDE LEVEL 105 MMOL/L (98-107); CHOLESTEROL LEVEL 156 MG/DL (<200); CHOLESTEROL RISK RATIO 4.45 (<5); CREATININE FOR GFR 0.56 MG/DL (0.55-1.30); FERRITIN 12.4 NG/ML (7.3-270.7); FREE T4 1.05 NG/DL (0.89-1.76); GLOMERULAR FILTRATION RATE > 60.0 (>60); GLUCOSE, FASTING 89 MG/DL (60-100); IRON (FE) 42 UG/DL (50-170); LDL CHOLESTEROL 84.8 MG/DL (<100); MAGNESIUM LEVEL 1.9 MG/DL (1.8-2.4); PERCENT SATURATION 9.6 % (13.2-45.0); POTASSIUM SERUM 4.5 MMOL/L (3.5-5.1); SODIUM LEVEL 141 MMOL/L (136-145); THYROID STIMULATING HORMONE 1.675 uIU/ML (0.55-4.78); TOTAL 25(OH) VITAMIN D 24.5 NG/ML (20.0-100.0); TOTAL IRON BINDING CAPACITY 437 UG/DL (250-425); TOTAL PROTEIN 7.7 G/DL (5.7-8.2); TRIGLYCERIDES LEVEL 181 MG/DL (<150)
== END ==
LOC: M LAB REF 16:44
PROVIDERS: ATTEND Physician Assistant
DX: I10 Essential (primary) hypertension (principal); R10.9 Unspecified abdominal pain; D50.9 Iron deficiency anemia, unspecified; R94.6 Abnormal results of thyroid function studies

== ENCOUNTER → 2024-09-05 | Outpatient (CLI) | payer OTHER | LOC: M PLARAD 10:30 | PROVIDERS: ATTEND Physician Assistant | DX: M51.362 Other intervertebral disc degeneration, lumbar region with discogenic back pain and lower extremity pain (principal); M43.06 Spondylolysis, lumbar region; M48.061 Spinal stenosis, lumbar region without neurogenic claudication ==

== ENCOUNTER → 2025-03-05 | Outpatient (CLI) | payer OTHER ==
[~2025-03-05] MED LIST changes: -IBUP-1022 PO; +IBUP600T42 PO
== END ==
LOC: M LAB 16:06
PROVIDERS: ATTEND Nurse Practitioner Family
DX: N92.6 Irregular menstruation, unspecified (principal)